=== PATIENT | male | born 1960 | race African-American/Black ===

== ENCOUNTER 2019-05-19 10:23 | Inpatient (IN) | payer BC, OTHER ==
[~2019-05-19] VITALS: Ht 167.6 cm; Wt 103.9 kg
[~2019-05-19 10:23] MED LIST: ASPERDRINK81 MG PO; CYCLOBENZAPRINE5 MG PO; FISHOIL; IBUPROFEN 600600 M1 PO; NORCO 5-325 TA1 EACH PO; ZESTRIL5 MG PO
[2019-05-19 10:25] VITALS: BP 155/95
[2019-05-19] MEDS ORDERED: REPATHA PU420 MG/3.5 SUBQ (10:37)
[2019-05-19] MEDS ORDERED: CHLORTHALIDONE25 MG PO (10:38)
[2019-05-19] MEDS ORDERED: FENOFIBRATE160 MG PO (10:38)
[2019-05-19] MEDS ORDERED: VASCEPA1 GM PO (10:38)
[2019-05-19] MEDS ORDERED: METFORMIN HCL500 M3 PO (10:38)
[2019-05-19 13:16] LABS: HEMATOCRIT 37.1 % (42.0-52.0); HEMOGLOBIN 12.6 gm/dL (14.0-18.0); MCH 30.5 pg (26.0-34.0); MCHC 34.1 g/dL (28.0-37.0); MCV 89.4 fL (80.0-100.0); RBC 4.15 mil/uL (4.50-6.00); RDW 12.7 % (10.5-14.5); WBC 9.8 thou/uL (4.0-11.0)
[2019-05-19 13:26] LABS: CALCIUM 9.8 mg/dL (8.5-10.1); CREATININE 1.7 mg/dL (0.7-1.3); POTASSIUM 4.9 mmol/L (3.5-5.1)
[2019-05-19 15:14] VITALS: BP 119/75
[2019-05-19 15:29] VITALS: BP 126/76
[2019-05-19 16:14] VITALS: BP 119/77
--- NOTE | 2019-05-19 17:53 | NUR ---
PATIENT ARRIVED FROM ED FOR LEFT KNEE CELULITIS AND KNEE PAIN. ALERT X4 FROM HOME. PAIN MANAGED WITH MEDICATIONS AND REST. ORTHO CONSULTED-NPO TONIGHT. CONSCENTS SIGNED. ADMISSION ASSESMENT AND HISTORY COMPLETED. ORDERS ACKNOWLEDGE. CALL LIGHT IN REACH. STAND BY ASSISTANCE.
[2019-05-19 19:24] VITALS: BP 128/60
[2019-05-19 23:42] VITALS: BP 107/61
[2019-05-20 03:32] VITALS: BP 111/62
--- NOTE | 2019-05-20 03:40 | NUR ---
ASSUMED CARE OF PT AT 1900HRS. PT IS AOX4 AND IS UP AD ÓSCAR. PT CALLS FOR HELP NEEDED. SPOUSE IS AT BED SIDE. PT WAS ABLE TO GET COMFORTABLE AND SLEEP PART OF THE SHIFT. NO S/S OF ACUTE DISTRESS. WILL CONTINUE TO MONITOR.
[2019-05-20 05:11] LABS: GLYCOHEMOGLOBIN (HGB A1C) 8.9 % (4.8-5.6)
[2019-05-20 05:35] LABS: ABSOLUTE NEUTROPHILS 10.4 thou/uL (1.4-8.2); BASOPHILS 0.3 % (0.0-2.0); EOSINOPHILS 0.1 % (0.0-3.0); HEMATOCRIT 35.9 % (42.0-52.0); LYMPHOCYTES 10.9 % (24.0-44.0); MCH 30.3 pg (26.0-34.0); MCHC 33.4 g/dL (28.0-37.0); MCV 90.5 fL (80.0-100.0); MONOCYTES 7.5 % (1.0-8.0); PLATELET COUNT 272 thou/uL (150-400); POLYS 81.2 % (36.0-66.0); RBC 3.96 mil/uL (4.50-6.00); RDW 13.2 % (10.5-14.5); WBC 12.8 thou/uL (4.0-11.0)
[2019-05-20 05:43] LABS: ALBUMIN 3.6 g/dL (3.4-5.0); CALCIUM 9.6 mg/dL (8.5-10.1); CREATININE 2.4 mg/dL (0.7-1.3); MAGNESIUM 2.2 mg/dL (1.8-2.4); PHOSPHORUS 2.3 mg/dL (2.5-4.9); POTASSIUM 5.6 mmol/L (3.5-5.1); TOTAL BILIRUBIN 0.2 mg/dL (<0.1-1.0)
[2019-05-20 08:04] VITALS: BP 111/72
[2019-05-20 10:43] LABS: URINE BILIRUBIN NEGATIVE (Negative); URINE BLOOD NEGATIVE (Negative); URINE CLARITY CLEAR; URINE COLOR YELLOW; URINE GLUCOSE-RANDOM* NEGATIVE (Negative); URINE KETONES NEGATIVE (Negative); URINE LEUKOCYTES NEGATIVE (Negative); URINE NITRITE NEGATIVE (Negative); URINE PROTEIN (DIPSTICK) NEGATIVE (Negative); URINE SPECIFIC GRAVITY >= 1.030 (1.005-1.035); URINE UROBILINOGEN 0.2 E.U./dl (0.2-1.0)
[2019-05-20 11:10] LABS: URINE PROTEIN-RANDOM* 14.8 mg/dL (<11.9)
--- NOTE | 2019-05-20 13:55 | NUR ---
PT ADMITTED RELATED TO CELLULITIS AND LEFT KNEE RAMANA. CM REVIEWED CHART AND SPOKE WITH CARE TEAM. CM MET WITH PT AND SPOUSE AT BEDSIDE THIS DAY. PT IS A&O X4. CM ROLE INTRODUCED. PT INDICATED HE LIVES IN A HOUSE WITH HIS WITH 3 STEPS TO ENTER AND NO STEPS INSIDE. 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 PT INDICATED NO DME OR HH HX. PT INDICATED HE PLANS TO RETURN HOME ONCE MEDICALLY STABLE. CM TO FOLLOW INDICATED WITH DC PLANNING.
[2019-05-20 14:20] VITALS: BP 111/57
--- NOTE | 2019-05-20 18:06 | NUR ---
Assumed pt care this am, ultra sound done this am. is at the bedside,pt is up at richard and able to ambulate from bed to toilet. GAve hmselft a bath today. Minimal pain was noted and managed with schduled medication, pt did not like the lidocain patch and felt this was causing him more discomfort and asked for it to be removed in the afternoon. VS have been stable. Home medication reviewed with Dr. French some not restarted due to renal issues informed the pt. Pt was also seen by Dr. Mccarthy, no lsurgical intervention is needed at this point. POC followed, no signs or verbalizations of distress have been noted.
[2019-05-20 19:53] VITALS: BP 102/65
--- NOTE | 2019-05-21 04:28 | NUR ---
Pt. rested quietly at intervals during the night when checked on during frequent rounds. He has been taking scheduled po tylenol for left knee pain (see emar) with some relief noted. Up ad richard to the bathroom and voiding without difficulty.
[2019-05-21 05:38] VITALS: BP 113/59
[2019-05-21 05:39] LABS: ABSOLUTE NEUTROPHILS 6.3 thou/uL (1.4-8.2); BASOPHILS 0.7 % (0.0-2.0); EOSINOPHILS 1.3 % (0.0-3.0); HEMOGLOBIN 11.9 gm/dL (14.0-18.0); LYMPHOCYTES 28.6 % (24.0-44.0); MCH 30.8 pg (26.0-34.0); MCHC 33.9 g/dL (28.0-37.0); MONOCYTES 5.6 % (1.0-8.0); PLATELET COUNT 259 thou/uL (150-400); POLYS 63.8 % (36.0-66.0); RBC 3.85 mil/uL (4.50-6.00); RDW 12.9 % (10.5-14.5); WBC 9.9 thou/uL (4.0-11.0)
[2019-05-21 05:54] LABS: ALBUMIN 3.3 g/dL (3.4-5.0); CALCIUM 8.8 mg/dL (8.5-10.1); CREATININE 1.5 mg/dL (0.7-1.3); PHOSPHORUS 3.1 mg/dL (2.5-4.9)
[2019-05-21 05:55] LABS: POTASSIUM 4.4 mmol/L (3.5-5.1)
[2019-05-21 07:50] VITALS: BP 114/65
--- NOTE | 2019-05-21 11:41 | NUR ---
ORDERS RECEIVED FOR EVAL AND TREAT LT KNEE PAIN/BURSITIS. SPOKE WITH Pt WHO STATES PAIN IS MUCH BETTER THAN YESTERDAY AND HE IS HAVING NO DIFFICULTY WITH MOBILITY. Pt STATES HE IS AMBULATING TO THE BATHROOM ON HIS OWN. OBSERVED Pt STAND AND AMBULATE IN HIS ROOM WITHOUT DIFFICULTY. Pt DECLINING FORMAL P.T. EVAL BUT APPEARS SAFE FOR HOME WHEN MEDICALLY CLEAR
[2019-05-21 15:00] VITALS: BP 112/67
[2019-05-21 19:29] VITALS: BP 131/58
--- NOTE | 2019-05-21 20:30 | NUR ---
ASSUMED CARE OF PATIENT AT 0715, PATIENT ALERT AND ORIENTED X4. UP AD ÓSCAR IN ROOM. PT EVAL ORDERED, MOIRA/PT STATES PATIENT OK UP AD ÓSCAR. PATIENT C/O LEFT KNEE PAIN. RECEIVED TYLENOL SCHEDULED EVERY 6 HRS. PATIENT TOOK A SHOWER AND LEFT KNEE STARTED SWELLING. THIS RN NOTIFIED DR MARTÍNEZ, ORDER RECEIVED FOR MORPHINE 1 MG EVERY 4 HOURS/PRN, AND ALSO NEW ORDER FOR HYDROCODONE 1 TABLET BID. PATIENT RECEIVE HYDROCODONE 1 TABLET THIS SHIFT AND MORPHINE 1 MG AT END OF THE SHIFT. BLOOD SUGAR MONITORING ORDERED, AND S/S INSULIN GIVEN PER BLOOD SUGAR READING. PATIENT HAS RIGHT FOREARM IV IN PLACE, IV FLUIDS CHANGED TO 50CC/HR, AND PATIENT CONTINUES TO RECEIVED IV ANTIBIOTICS. WILL CONTINUE TO MONITOR.
[2019-05-22 05:16] VITALS: BP 134/72
--- NOTE | 2019-05-22 05:29 | NUR ---
Pt. rested quietly at intervals during the night when checked on during frequent rounds. He c/o pain to his left knee and was given iv morphine (see emar) with some relief noted. Some swelling to the knee, but no red- ness present.
[2019-05-22 05:55] LABS: ALBUMIN 3.5 g/dL (3.4-5.0); CREATININE 1.4 mg/dL (0.7-1.3); PHOSPHORUS 3.3 mg/dL (2.5-4.9); POTASSIUM 4.9 mmol/L (3.5-5.1)
[2019-05-22 07:08] VITALS: BP 128/71
[2019-05-22 15:36] VITALS: BP 117/76
--- NOTE | 2019-05-22 19:39 | NUR ---
ALERTS X4, PAIN MANAGED WITH MEDICATIONS. LEFT LE SLOW TO PROGRESS. BRIEF DM EDUCATION TODAY WITH FOLLOW UP EDUCATION, TOMORROW. POSSIBLE DC TOMORROW.
[2019-05-22 19:50] VITALS: BP 135/82
[2019-05-23 03:58] VITALS: BP 133/56
--- NOTE | 2019-05-23 05:20 | NUR ---
Pt. rested quietly during the night when checked on during frequent rounds. He did c/o left knee pain and po pain meds given (see emar) with relief noted. Left knee with swelling present, but no redness present. Iv antibiotics given as ordered. Spouse at the bedside during hs blood sugar check. Demonstrated and educated on how to draw up insulin and administer. Will continue to educate pt. and spouse on diabetes and insulin. New iv inserted to right fa without difficulty.
[2019-05-23 07:55] VITALS: BP 127/80
[2019-05-23 11:46] LABS: ABSOLUTE NEUTROPHILS 5.1 thou/uL (1.4-8.2); BASOPHILS 0.9 % (0.0-2.0); EOSINOPHILS 1.5 % (0.0-3.0); HEMATOCRIT 38.8 % (42.0-52.0); HEMOGLOBIN 13.1 gm/dL (14.0-18.0); MCH 30.5 pg (26.0-34.0); MCHC 33.7 g/dL (28.0-37.0); MCV 90.5 fL (80.0-100.0); MONOCYTES 8.7 % (1.0-8.0); PLATELET COUNT 282 thou/uL (150-400); POLYS 66.9 % (36.0-66.0); RBC 4.29 mil/uL (4.50-6.00); RDW 12.6 % (10.5-14.5); WBC 7.7 thou/uL (4.0-11.0)
[2019-05-23 12:01] LABS: CREATININE 1.3 mg/dL (0.7-1.3); POTASSIUM 4.2 mmol/L (3.5-5.1)
[2019-05-23 12:17] LABS: CALCIUM 9.5 mg/dL (8.5-10.1)
--- NOTE | 2019-05-23 15:20 | HC ---
[facility] [place] [address] CONSULTATION Name: RONIT INFANTE Room #: 454-P ADM IN M.R.#: [id number] Admission: 05/19/19 Attend Phys: Isabelle French MD Discharge: Date of : 64 Report #: [id number] THIS REPORT FOR: //name// CC: Isabelle Hunter DATE OF SERVICE: 05/19/2019 INFECTIOUS DISEASE CONSULTATION REASON FOR CONSULTATION: I was asked to evaluate left knee pain with concern for possible infection. HISTORY OF PRESENT ILLNESS: The patient is a 59-year-old diabetic with coronary artery disease, hypertension, who had rather acute onset of pain in his left knee over the prominence of the tibia. No specific trauma. Mild swelling, pain worsened and was unable to ambulate, presented to the Emergency Room. Again, no trauma. No other arthritis symptoms. Blood sugars have been reasonable. No fever, chills or sweats. No history of gout or other arthritis issues. No prior injuries to his knee. 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 Hospitalized given pain medication, placed on ceftriaxone. He notes that the pain is a bit better this evening. REVIEW OF SYSTEMS: A 10-point review of system was negative other than what has been described above. PAST MEDICAL HISTORY: Diabetes, hypertension, hyperlipidemia, obesity, coronary artery disease, coronary bypass grafting. ALLERGIES: None. MEDICATIONS: Repatha, lisinopril, metformin, aspirin, hydrochlorothiazide, fenofibrate, fish oil, now on ceftriaxone. FAMILY HISTORY: Noncontributory. SOCIAL HISTORY: Past smoker, no significant alcohol intake. 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 PHYSICAL EXAMINATION: VITAL SIGNS: He is afebrile and hemodynamically stable. GENERAL: He is alert and cooperative and pleasant, in no acute distress. Moderately obese. SKIN: Without rash or decubitus. No palpable adenopathy. [facility] [address] [place] [address] CONSULTATION Name: RONIT INFANTE Room #: 454-P [facility] IN M.R.#: [id number] Admission: 05/19/19 Attend Phys: Isabelle French MD Discharge: Date of : 64 Report #: [id number] EYES: Without scleral icterus. MOUTH: Without mucositis. NECK: Supple. LUNGS: Clear. HEART: Regular. ABDOMEN: Soft and nontender. EXTREMITIES: The left lower extremity had tenderness over the tibial tuberosity. There was very mild amount of swelling in this region. Mild warmth. No definite cellulitis. This area was exquisitely tender. No joint effusion noted. Range of motion was reasonable, although it was limited due to his pain. No peripheral edema. No tinea pedis. Sensation in his feet was normal. Pulses were normal. LABORATORY STUDIES: Reviewed. Hemoglobin 12.6, WBC 9.8, platelet 228,000. Sedimentation rate 40, creatinine 1.7. C-reactive protein 40. X-ray of the knee shows mild degenerative changes and anterior soft tissue swelling. IMPRESSION: Suspected bursitis involving the tibial tuberosity on the left. He has no risk factors reported for MRSA. He has had no prior history of furuncles. He does have underlying diabetes and chronic kidney disease. Organisms of concern would include Staphylococcus and Streptococcus. RECOMMENDATIONS: We will continue IV antibiotic therapy and rest. We will see how he looks tomorrow. If marked improvement, we will continue antibiotic coverage. If still having issues, we would image further with an MRI scan. <ELECTRONICALLY SIGNED> By: Rasheed Carcamo MD 05/23/19 1520 2219 [id number] Rasheed Carcamo MD /nt
[2019-05-23 15:22] VITALS: BP 158/83
--- NOTE | 2019-05-23 15:36 | NUR ---
AWAITING ORTHO TO REASSESS PT. DR. TSANG INDICATED THAT HE DOESN'T ANTICIPATE THAT PT WILL NEED IV ABX UPON DC. CM TO FOLLOW INDICATED WITH DC PLANNING.
[2019-05-23 19:38] VITALS: BP 144/73
--- NOTE | 2019-05-24 05:42 | NUR ---
PT IS A/O X4.PT USES URINAL.PT PAIN MGT WITH HYDROCODONE.DENIES N/V.PT PT IS NEW DX DAIBETES AND ON MODERATE DOSE INSULIN.CONTINUE POC TILL EOS
[2019-05-24 07:32] VITALS: BP 149/77
--- NOTE | 2019-05-24 07:36 | HC ---
[facility] [place] [address] CONSULTATION Name: RONIT INFANTE Room #: 454-P ADM IN M.R.#: [id number] Admission: 05/19/19 Attend Phys: Isabelle French MD Discharge: Date of : 64 Report #: [id number] THIS REPORT FOR: //name// CC: Isabelle Hunter DATE OF SERVICE: 05/20/2019 REASON FOR CONSULTATION: Left knee pain, possible bursitis. HISTORY OF PRESENT ILLNESS: The patient is a 59-year-old gentleman with a history of diabetes, coronary artery disease, hypertension, hyperlipidemia. On Thursday of this week, which was 05/17/2019, he started to have some left knee pain and then on 05/18/2019, that pain got significantly worse. He denies any trauma to the knee. He was having difficulty bearing weight and came to the Emergency Room and was admitted for possible cellulitis versus bursitis of his left knee. He was started on IV antibiotics. He tells me this morning that his knee pain is significantly improved and he is able to bend his knee much more compared to yesterday. Denies any fever or chills. PAST MEDICAL HISTORY: Diabetes, hypertension, hyperlipidemia, BMI 37, coronary artery disease. ALLERGIES: None. CURRENT MEDICATIONS: Have been reviewed and are on the chart. He is on ceftriaxone. PHYSICAL EXAMINATION: GENERAL: This is a well-developed, well-nourished male in no acute distress. He is alert and oriented x 3, pleasant, cooperative with exam. EXTREMITIES: Examination of the left knee shows him to have minimal pain with range of motion of the knee. His motion is from 0-95 degrees. He states this is significantly improved compared to yesterday. He has mild tenderness over his prepatellar bursa, but no fluctuance noted. There is no erythema or swelling. No knee effusion is noted. X-RAY EXAMINATION: Three views of the left knee have been reviewed, show him to have mild tricompartmental osteoarthritis. No overlying soft tissue swelling is noted. LABORATORY VALUES: Show him to have a white cell count of 12.8. Sed rate is 40. ASSESSMENT: Left knee resolving cellulitis versus bursitis. [address] [address] CONSULTATION Name: RONIT INFANTE Room #: 454-P ADM IN M.R.#: [id number] Admission: 05/19/19 Attend Phys: Isabelle French MD Discharge: Date of : 64 Report #: [id number] PLAN: He is significantly improved compared to yesterday, according to his report and his 's report. There is minimal swelling of his knee. There is no fluctuance noted on my examination today. He is moving his knee well. At this point, I do not see any indication for surgical intervention. Recommend continuing IV antibiotics per Dr. Carcamo's recommendation. We will sign off on him. If he worsens clinically, please call us again and we will re-evaluate for possible need for I and D of his knee. My suspicion is he will be able to be discharged on antibiotics and follow up on an as needed basis for his knee. Thank you for allowing us to participate in the care of the patient. <ELECTRONICALLY SIGNED> By: Mesfin Mccarthy MD 05/24/19 0736 0746 0058 Mesfin Mccarthy MD /nt
--- NOTE | 2019-05-24 11:55 | NUR ---
Assess for pt with intitial identification of pressure ulcer per nursing documentation however pt does not have wound, but bursititis knee. Further chart review and pt with new dx diabetes and on glargine and ss insulin. States had been prediabetic in past. A1C 8.9. Nursing has started education with pt/. BMI 37-obese. Reviewed healthy diet for improved BG control with pt and and pt receptive to information. Also has hx CABG, CAD, BRITTANY. Appetite is good. Low nutrition risk
[2019-05-24 13:43] VITALS: BP 109/58
[2019-05-24] MEDS ORDERED: GLYBURIDE 5 MG T5 M1 PO (14:00)
[2019-05-24] MEDS ORDERED: OTHER MISCELL (14:00)
[2019-05-24] MEDS ORDERED: METFORMIN HCL500 M3 PO (14:00)
[2019-05-24] MEDS ORDERED: HYDROCODON-ACE1 EAC7 PO (14:01)
[2019-05-24 15:55] VITALS: BP 109/58
[2019-05-24] MEDS ORDERED: CELEBREX100 MG/1 C PO (17:04)
--- NOTE | 2019-05-24 18:42 | NUR ---
ASSUMED CARE AT 0700, SHIFT ASSESSMENT DONE, MEDS GIVEN, REPORTED PAIN, PRN PAIN MEDS GIVEN. DISCHARGE ORDER RECEIVED, ORDER RECEIVED FOR LEFT KNEE IMMOBILIZER, WAS PROVIDED. DISCHARGE PAPER WORK GIVEN, PRESCRIPTION GIVEN. PERIPHERAL IV WAS TAKEN OUT. LEFT WITH [facility]SPORT AT 1800
--- NOTE | 2019-05-31 08:39 | HC ---
[facility] [place] [address] CONSULTATION Name: RONIT INFANTE Room #: 454-P [facility] IN M.R.#: [id number] Admission: 05/19/19 Attend Phys: Isabelle French MD Discharge: 05/24/19 Date of : 64 Report #: [id number] THIS REPORT FOR: //name// CC: Isabelle Hunter DATE OF SERVICE: 05/21/2019 REASON FOR THE CONSULTATION: Acute kidney injury. CHIEF COMPLAINT: Left knee pain. HISTORY OF PRESENT ILLNESS: A 59-year-old with past medical history of diabetes mellitus, hypertension, hyperlipidemia and chronic kidney disease, for which he is followed by [facility]. He tells me that his blood pressure and blood sugar are under well control. He also tells me that he has mild kidney disease, but he does not recall his exact numbers. He came to the Emergency Room complaining of left knee pain. No evidence of trauma. This was associated with some redness. He also was not able to bear weight on his left side. He denies any prior similar episodes. No gout. His creatinine on presentation was 1.7. He received a dose of Toradol and this has resulted in significant worsening of his kidney function with creatinine going up to 2.5; however, this is down to 1.5 from this morning. PAST MEDICAL HISTORY: 1. Diabetes mellitus. 2. Hypertension. 3. Chronic kidney disease. 4. Coronary artery disease. MEDICATIONS: 1. Repatha. 2. Aspirin. 3. Fish oil. 4. Hydrochlorothiazide. 5. Metformin. 6. Lisinopril. SOCIAL HISTORY: Denies drug or alcohol abuse. Lives with his . FAMILY HISTORY: Mother had diabetes. PAST SURGICAL HISTORY: CABG two years ago. REVIEW OF SYSTEMS: [facility] [address] [place] [address] CONSULTATION Name: RONIT INFANTE Room #: 454-P DIS IN [facility].#: [id number] Admission: 05/19/19 Attend Phys: Isabelle French MD Discharge: 05/24/19 Date of : 64 Report #: [id number] GENERAL: No fever or chills. CARDIOVASCULAR: No chest pain or palpitation. PULMONARY: No cough or hemoptysis. GASTROINTESTINAL: No nausea or vomiting. GENITOURINARY: No frequency, no urgency. SKIN: No rash or ulcerations. MUSCULOSKELETAL: Left knee pain with some erythema. NEUROLOGICAL: No headache, no dizziness. PHYSICAL EXAMINATION: GENERAL: The patient was alert, oriented. VITAL SIGNS: Temperature 37. Blood pressure was 113/59. HEAD AND NECK: No jugular venous distention. CHEST: No crackles. CARDIOVASCULAR: No rub detected. ABDOMEN: Soft, nontender with no hepatosplenomegaly. LOWER EXTREMITIES: No edema. Slightly tender spot over the left knee. LABORATORY VALUES: Reviewed. His UA was completely unremarkable. Creatinine is down to 1.5. Hemoglobin is 11.9. ASSESSMENT, IMPRESSION, AND PLAN: 1. Chronic kidney disease. 2. Acute kidney injury. 3. Bursitis. 4. Diabetes mellitus. 5. Coronary artery disease. 6. His acute kidney injury was related to Toradol, this has been discontinued. 7. His creatinine is now down to his baseline. 8. Continue to hold lisinopril. 9. Continue IV fluids. 10. Continue to hold metformin. 11. Bursitis is being addressed by [facility]opedic [facility] Disease. <ELECTRONICALLY SIGNED> By: Berenice Arroyo MD 05/31/19 0839 0601 [id number] Berenice Arroyo MD /nt
--- NOTE | 2019-06-07 10:15 | H ---
[facility] [place] [address] HISTORY AND PHYSICAL Name: RONIT INFANTE Room #: 454-P [facility] IN M.R.#: [id number] Admission: 05/19/19 Attend Phys: Isabelle French MD Discharge: 05/24/19 Date of : 64 Report #: [id number] THIS REPORT FOR: //name// CC: Isabelle Hunter DATE OF SERVICE: 05/19/2019 PRIMARY CARE PHYSICIAN: Dr. Hunter. EMERGENCY CONTACT: His , Ms. Pratibha Infante, . CODE STATUS: Full code. CHIEF COMPLAINT: Left knee pain, started yesterday morning, and progressively got worse. HISTORY OF PRESENT ILLNESS: The patient is a very pleasant 59-year-old gentleman with a known history of coronary artery disease with CABG two years ago as well as diabetes mellitus type 2, hypertension, hyperlipidemia. The patient informs me that on Thursday he went to work and he noticed some discomfort in the left knee, but it was not persistent and it resolved by itself; however, yesterday morning, the pain got significantly worse and progressively worse since today, and now he is unable to bear weight on the knee. The patient informs me that he has had no trauma. no sprain, no weightlifting or any activity or trauma that could have exacerbated this pain. He is unable to recall so. The patient has never had any knee problems in the past. He informs me that area underneath the knee and points towards the patella is extremely tender as if somebody is pushing something really sharp on the knee joint. The patient has not noticed any swelling or redness, but today he noticed a little bit of fullness in the left knee area as compared to the right knee. The patient denied any associated fever, shaking chills, night sweats. He denies any skin breakdown or any trauma to the feet or leg or anything that could have contributed to this swelling in the knee or source of infection in the left knee. The patient has review of systems negative for nausea, vomiting, diarrhea, constipation. Denies any hematochezia or melena. He also denies any cough, sputum production, shortness of breath, sore throat, sinus drainage, also denies any dysuria, hematuria, frequency or urgency of urination. PAST MEDICAL HISTORY: As noted above, the patient has: 1. Diabetes. 2. Hypertension. 3. Hyperlipidemia. 4. Obesity with BMI of 37. [address] [address] HISTORY AND PHYSICAL Name: RONIT INFANTE Room #: 454-P [facility] IN M.R.#: [id number] Admission: 05/19/19 Attend Phys: Isabelle French MD Discharge: 05/24/19 Date of : 64 Report #: [id number] 5. Coronary artery disease. ALLERGIES: None. MEDICATIONS: 1. Repatha. 2. Lisinopril. 3. Metformin. 4. Aspirin. 5. Hydrochlorothiazide. 6. Fenofibrate. 7. Fish oil capsules. FAMILY HISTORY: The patient's mother had has diabetes mellitus. Father with dementia. PERSONAL AND SOCIAL HISTORY: The patient quit smoking 2-1/2 years ago. Prior to that, he smoked 1 pack per day and denies any alcohol or recreational drug use. Lives at home with his and wishes to be full code. PAST SURGICAL HISTORY: The patient had CABG 2 years ago and right femur surgery. REVIEW OF SYSTEMS: Ten point review of system was done. Please see HPI above. PHYSICAL EXAMINATION: VITAL SIGNS: Temperature 36.8, heart rate 111, respirations 18, blood pressure 155/95 when he presented to the ER with oxygen saturation of 100% on room air. At the time of examination, the patient had temperature 36.8, heart rate 97, respirations 16, blood pressure 119/75, pulse oximetry 97% on room air. GENERAL: Alert and oriented to time, place and person, very pleasant gentleman who is in no acute distress as long as the knee joint is not moved. HEENT: Normocephalic, atraumatic. Pupils equally round, reactive to light. Conjunctivae clear. Sclerae nonicteric. Oropharynx clear. Mucous membranes moist. NECK: Supple. No JVD. No lymphadenopathy or thyromegaly. HEART: S1, S2, regular. No murmur, no S3, no S4. LUNGS: Clear to auscultation bilaterally without any crackles or wheezes. Midline scar of CABG, well healed. No chest wall tenderness noted. ABDOMEN: Soft, nontender, nondistended. Normal active bowel sounds. No organomegaly noted. EXTREMITIES: No edema of both lower extremities. The patient has 2+ pedal pulses present in both lower extremities. MUSCULOSKELETAL: Left knee with no erythema or skin breakdown noted; however, marked tenderness noted at the patella and in the suprapatellar area. There is some fullness. Range of motion at knee is slightly limited with flexion. [facility] [address] [place] [address] HISTORY AND PHYSICAL Name: RONIT INFANTE Room #: 454-P [facility] IN M.R.#: [id number] Admission: 05/19/19 Attend Phys: Isabelle French MD Discharge: 05/24/19 Date of : 64 Report #: [id number] NEUROLOGIC: Completely nonfocal. SKIN: Without any breakdown or rash noted. LABORATORY DATA: WBC 9.8, hemoglobin 12.6, hematocrit 37.1, platelet count 288. Sed rate elevated at 40. Differential is pending. Sodium 137, potassium 4.9, chloride 101, bicarbonate 24, anion gap 12, BUN 34, creatinine 1.7, estimated GFR 51, glucose 184, calcium 9.8, and C-reactive protein at 40.7. IMAGING: X-ray of the knee indicates joint space fairly well maintained and vascular calcifications noted, mild degenerative changes and anterior soft tissue swelling noted. ASSESSMENT AND PLAN: 1. Severe left knee pain with possible underlying bursitis and may be component of cellulitis. There was a question of septic arthritis noted; however, there is absolutely no erythema or redness or warmth noted. Tenderness definitely is present; however, the patient is a diabetic, the vascular disease as well and orthopedic has been consulted by the ER provider. We will go ahead and ask Infectious Disease as well for the feedback. Rocephin was given in the Emergency Room and will continue empirically. 2. Diabetes mellitus type 2. We will do Accu-Cheks q.i.d. a.c. and at bedtime and start home medications and high dose sliding scale insulin. 3. Hypertension. We will resume home medications. 4. Chronic kidney disease stage 3. The patient has a GFR of 55. We will go ahead and avoid any nephrotoxic agents. 5. Hyperlipidemia. The patient is on Repatha and fenofibrate. We will continue fenofibrate for now. We will hold Repatha. 6. Obesity with a BMI of 37. Advised the patient to lose some weight. 7. Tobacco use, in remission. We will go ahead and encourage the patient to sustain remission status and code status full code. Deep venous thrombosis prophylaxis with heparin and gastrointestinal prophylaxis with Pepcid. <ELECTRONICALLY SIGNED> By: Isabelle French MD 06/07/19 [id number] Isabelle French MD /nt
== END 2019-05-24 18:18 | disposition home or self-care (01) | DRG 558 ==
LOC: ER 10:23 → EROBS 14:46 → 4W 15:58 → ENTRNSPT 05-24 17:51 → 4W 05-24 18:18
PROVIDERS: Hospitalist; Nurse Practitioner Family; ADMIT Internal Medicine
DX: M76.52 Patellar tendinitis, left knee (principal); N17.9 Acute kidney failure, unspecified; I25.10 Atherosclerotic heart disease of native coronary artery without angina pectoris; E78.5 Hyperlipidemia, unspecified; E66.9 Obesity, unspecified; I12.9 Hypertensive chronic kidney disease with stage 1 through stage 4 chronic kidney disease, or unspecified chronic kidney disease; E11.22 Type 2 diabetes mellitus with diabetic chronic kidney disease; N18.3 Chronic kidney disease, stage 3 (moderate); T39.8X5A Adverse effect of other nonopioid analgesics and antipyretics, not elsewhere classified, initial encounter; Z68.37 Body mass index [BMI] 37.0-37.9, adult; Z95.1 Presence of aortocoronary bypass graft; Z79.899 Other long term (current) drug therapy; Z79.82 Long term (current) use of aspirin; Z83.3 Family history of diabetes mellitus; Z81.8 Family history of other mental and behavioral disorders; Z87.891 Personal history of nicotine dependence; Y92.89 Other specified places as the place of occurrence of the external cause
CPT/HCPCS: 10040

== ENCOUNTER 2019-05-26 13:38 | Inpatient (IN) | payer BC, OTHER ==
[~2019-05-26] VITALS: Ht 167.6 cm; Wt 103.9 kg
[2019-05-26 13:38] VITALS: BP 89/53
[~2019-05-26 13:38] MED LIST changes: +CELEBREX100 MG/1 C PO; +CHLORTHALIDONE25 MG PO; +FENOFIBRATE160 MG PO; +GLYBURIDE 5 MG T5 M1 PO; +HYDROCODON-ACE1 EAC7 PO; +METFORMIN HCL500 M3 PO; +OTHER MISCELL; +REPATHA PU420 MG/3.5 SUBQ; +VASCEPA1 GM PO
[2019-05-26 15:23] LABS: ABSOLUTE NEUTROPHILS 7.9 thou/uL (1.4-8.2); BASOPHILS 0.7 % (0.0-2.0); EOSINOPHILS 0.5 % (0.0-3.0); HEMATOCRIT 34.8 % (42.0-52.0); HEMOGLOBIN 11.7 gm/dL (14.0-18.0); LYMPHOCYTES 12.9 % (24.0-44.0); MCH 30.2 pg (26.0-34.0); MCHC 33.5 g/dL (28.0-37.0); MCV 90.2 fL (80.0-100.0); MONOCYTES 7.5 % (1.0-8.0); PLATELET COUNT 318 thou/uL (150-400); POLYS 78.4 % (36.0-66.0); RBC 3.86 mil/uL (4.50-6.00)
[2019-05-26 15:33] LABS: ANION GAP 9 mmol/L (7-16); BUN 45 mg/dL (7-18); CALCIUM 9.6 mg/dL (8.5-10.1); CHLORIDE 100 mmol/L (98-107); CO2 26 mmol/L (21-32); CREATININE 2.4 mg/dL (0.7-1.3); GLUCOSE 145 mg/dL (74-106); POTASSIUM 5.3 mmol/L (3.5-5.1); SODIUM 135 mmol/L (136-145)
[2019-05-26 15:41] LABS: APTT 20.8 Seconds (24.5-32.8); INR 1.1
[2019-05-26 15:43] LABS: ALBUMIN 3.5 g/dL (3.4-5.0); DIRECT BILIRUBIN < 0.1 mg/dL (<0.1-0.3); LIPASE 135 U/L (73-393); SGOT 13 U/L (15-37); SGPT 18 U/L (30-65); TOTAL BILIRUBIN 0.1 mg/dL (<0.1-1.0); TOTAL PROTEIN 7.7 g/dL (6.4-8.2); TROPONIN-I <0.06 ng/mL (<0.06)
--- NOTE | 2019-05-26 16:30 | EKG ---
[address] [address] ELECTROCARDIOGRAM REPORT Name: RONIT INFANTE [id number] Admission: 05/26/19 Attend Phys: Discharge: Date of : 64 Report #: [id number] THIS REPORT FOR: //name// [facility] ED Test Date: 2019-05-26 Test Time: 14:31:31 Pat Name: RONIT INFANTE Department: Room: Gender: M Police Officer: : 1960 Requested By: Alex Robins Order Number: [id number] MD: Osito Rojas Measurements Intervals [place] Rate: 86 P: 45 MA: 148 QRS: 23 QRSD: 86 T: 97 QT: 361 QTc: 432 Interpretive Statements Sinus rhythm Nonspecific T abnormalities, lateral leads Compared to ECG 10/30/2010 05:59:54 T-wave abnormality now present Electronically Signed On 05-26-2019 16:30:00 CDT by Osito Rojas [email or web address] <ELECTRONICALLY SIGNED> By: Osito Rojas MD 05/26/19 1630 1431 143 Osito Rojas MD /GERRY
[2019-05-26 17:52] LABS: URINE BILIRUBIN NEGATIVE (Negative); URINE BLOOD NEGATIVE (Negative); URINE CLARITY CLEAR; URINE COLOR YELLOW; URINE GLUCOSE-RANDOM* NEGATIVE (Negative); URINE KETONES NEGATIVE (Negative); URINE LEUKOCYTES-REFLEX NEGATIVE (Negative); URINE NITRITE-REFLEX NEGATIVE (Negative); URINE PROTEIN (DIPSTICK) NEGATIVE (Negative); URINE SPECIFIC GRAVITY 1.025 (1.005-1.035); URINE UROBILINOGEN 0.2 E.U./dl (0.2-1.0)
[2019-05-26 18:50] VITALS: BP 109/58
[2019-05-26 19:15] VITALS: BP 104/64
[2019-05-26 21:15] VITALS: BP 126/67
[2019-05-27] VITALS: BP 116/70
[2019-05-27 05:17] VITALS: BP 117/57
[2019-05-27 05:44] LABS: HEMATOCRIT 32.5 % (42.0-52.0); HEMOGLOBIN 10.7 gm/dL (14.0-18.0); MCH 30.5 pg (26.0-34.0); MCV 92.4 fL (80.0-100.0); RBC 3.52 mil/uL (4.50-6.00); RDW 12.9 % (10.5-14.5); WBC 7.7 thou/uL (4.0-11.0)
[2019-05-27 06:03] LABS: CALCIUM 9.1 mg/dL (8.5-10.1); MAGNESIUM 2.2 mg/dL (1.8-2.4); PHOSPHORUS 3.2 mg/dL (2.5-4.9); POTASSIUM 4.8 mmol/L (3.5-5.1)
--- NOTE | 2019-05-27 06:17 | NUR ---
PT WAS ADMIT FROM ER AT 1999. FOLLOWING POC WITH IVF. PT STATES NO PAIN AT THIS TIME. ADMISSION COMPLETED, CAREPLAN INITIATED, MED REC STARTED. PT IS NEWLY DIAGNOSED DIABETIC TYPE II. THERE ARE NO INSULIN MEDICATIONS FOR PT YET. PT VSS AND TELEMENTY SHOWS SR. PT IS A/O X4. LEFT LEG IS IN AN IMMOBILIZER. CONSULT TO RENAL WILL BE CALLED IN THIS MORNING. HOURLY ROUNDING.
[2019-05-27 06:19] LABS: CREATININE 1.4 mg/dL (0.7-1.3)
[2019-05-27 07:53] VITALS: BP 106/68
--- NOTE | 2019-05-27 10:07 | NUR ---
Nutrition: Received consult for diet instructions, re: newly diagnosed type 2 diabetes. Admit: BRITTANY, hypotension. Pt just admitted earlier this week; seen by RD 3 days ago on 05/24 for diet ed on new DM. RD returned this AM to f/up on any further questions/education needs. had numerous questions about which foods were preferred, portion size, "is this ok to have?" RD clarified 45 g CHO/meal goal; max of 60 g/meal. A1c 8.9% per 05/19/19. Fasting BG 117 mg/dl. Encouraged use of whole grains instead of refined. Focused on low carb content of non starchy vegetables. Offered alternative to pasta like spaghetti squash, discussed carb content, serving sizes of fruits. Encouraged pairing carbs w/ protein, healthy fat to help slow down digestion/BG spikes. Low nutrition risk otherwise.
--- NOTE | 2019-05-27 12:41 | NUR ---
PT ADMITTED RELATED TO ABDOMINAL PAIN. CM REVIEWED CHART AND SPOKE WITH CARE TEAM. CM MET WITH PT AT BEDSIDE THIS DAY. PT IS A&O X4, PT'S SPOUSE ALSO PRESENT. PT INDICATED HE LIVES IN A HOUSE WITH IS SPOUSE WITH 3 STEPS TO ENTER AND NO STEPS INSIDE. 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 PT INDICATED HE ANTICIPATES RETURNING HOME ONCE MEDICALLY STABLE. CM TO FOLLOW SHOULD ANY DC NEEDS ARISE.
--- NOTE | 2019-05-27 13:11 | NUR ---
ORDERS RECEIVED FOR EVAL AND TREAT. Pt IS FAMILIAR TO THIS THERAPIST FROM PREVIOUS ADMISSION A FEW DAYS AGO. SPOKE WITH Pt WHO STATES HE IS HAVING NO DIFFICULTY WITH MOBILITY AND HAS BEEN USING THE KNEE IMMOBILIZER WHEN WALKING. Pt DECLINING FORMAL P.T. EVAL BUT WAS UP AD ÓSCAR LAST ADMISSION AND Pt FEELS THOUGH HE IS MOVING LIKE HE NORMALLY DOES
[2019-05-27 15:27] VITALS: BP 118/75
[2019-05-27 19:09] VITALS: BP 125/71
--- NOTE | 2019-05-27 19:46 | NUR ---
QUIET UNEVENTFUL DAY. UP WITH STANDBY ASSIST TO BATHROOM. STEADY GAIT NOTED. PHYSICAL THERAPY MOIRA STATED DOES NOT NEED PT SO SIGNED OFF. TOLERATING DIET WELL. DENIED PAIN. SR ON TELE. HOPING TO GO HOME TOMORROW.
[2019-05-28 04:38] VITALS: BP 121/62
[2019-05-28 04:55] LABS: HEMATOCRIT 31.8 % (42.0-52.0); HEMOGLOBIN 10.6 gm/dL (14.0-18.0); MCH 29.9 pg (26.0-34.0); MCHC 33.2 g/dL (28.0-37.0); RBC 3.54 mil/uL (4.50-6.00); RDW 12.8 % (10.5-14.5); WBC 5.9 thou/uL (4.0-11.0)
[2019-05-28 05:16] LABS: CALCIUM 8.9 mg/dL (8.5-10.1); CREATININE 1.2 mg/dL (0.7-1.3); MAGNESIUM 1.8 mg/dL (1.8-2.4); PHOSPHORUS 2.3 mg/dL (2.5-4.9); POTASSIUM 4.6 mmol/L (3.5-5.1)
--- NOTE | 2019-05-28 05:40 | NUR ---
REPORT GIVEN TO 4S RN ON PT. ALLOWED FOR QUESTIONS. DISCUSSED POC AND AM LABS, HX OF PT AND ADMITTING DX. WILL GATHER PT BELONGINGS UP AROUND 0600 AND TRANSFER PT OFF FLOOR TO ROOM 440.
--- NOTE | 2019-05-28 06:33 | NUR ---
PT OFF FLOOR IN STABLE CONDITION. WILL ALL BELONGINGS. AT SIDE. PT SETTLED AND ORIENTED TO NEW ROOM ON 4S
[2019-05-28 16:31] VITALS: BP 121/78
--- NOTE | 2019-05-28 18:08 | NUR ---
Assumed care of pt at 0700. Pt transeferred from 3W. Leg brace in place. No c/o pain. Fluids infusing. Pt calls appropriately. Family at bedside. Pt awaiting to see hospital doctor. Doctor notified and states she will see pt. Will continue to monitor.
[2019-05-28 21:00] VITALS: BP 132/78
[2019-05-29] VITALS (7 sets, daily range): BP systolic 124–168; BP diastolic 59–100
--- NOTE | 2019-05-29 04:21 | NUR ---
Pt. rested quietly at intervals during the night when checked on during frequent rounds. He offers no complaints. Pt. getting ready for discharge today.
[2019-05-29 06:21] LABS: HEMATOCRIT 33.1 % (42.0-52.0); MCH 29.7 pg (26.0-34.0); MCHC 33.2 g/dL (28.0-37.0); MCV 89.4 fL (80.0-100.0); RBC 3.71 mil/uL (4.50-6.00); RDW 12.6 % (10.5-14.5); WBC 5.6 thou/uL (4.0-11.0)
[2019-05-29 06:45] LABS: CALCIUM 8.9 mg/dL (8.5-10.1); CREATININE 1.1 mg/dL (0.7-1.3); MAGNESIUM 1.6 mg/dL (1.8-2.4); PHOSPHORUS 2.7 mg/dL (2.5-4.9); POTASSIUM 4.1 mmol/L (3.5-5.1)
[2019-05-29] MEDS ORDERED: PEPCID20 MG PO (15:11)
--- NOTE | 2019-05-29 15:21 | NUR ---
PT ALERT AND ORIENTED TIMES FOUR. VSS BP WAS ELEVATED WHEN STANDING FOR ORTHOSTATIC BP. PT DENIES PAIN/SOA. PT UP AB ÓSCAR WITH STEADY GAIT. PT TOLERATES MEDS AND MEALS. PT AT BEDSIDE. PPOSSIBLE PLAN TO DISCHARGE TODAY. WILL CONTINUE TO MONITOR.
--- NOTE | 2019-05-30 04:36 | NUR ---
ASSUMED CARE OF PT. PT ASSESSED AT START OF SHIFT A&OX4 DENIES PAIN, N,V AND DIZZINESS. BP ASSESSED AND STABLE. BEDTIME BLOD SUGAR 160. AT BEDSIDE. PT GETTING READY FOR D/C. CALL LIGHT IN PLACE AND WILL CONT TO MONITOR TILL EOS
[2019-05-30 05:45] VITALS: BP 130/80
[2019-05-30] MEDS ORDERED: NORVASC 2.5 MG2.5 M1 PO (09:21)
[2019-05-30] MEDS ORDERED: AMARYL1 MG PO (09:21)
[2019-05-30 09:33] VITALS: BP 123/79
--- NOTE | 2019-05-30 14:46 | 2DMMODE ---
[facility] [place] [address] 2 D/M-MODE ECHOCARDIOGRAM Name: RONIT INFANTE Room #: 440-P ADM IN M.R.#: [id number] Admission: 05/26/19 Attend Phys: Isabelle French, Discharge: Date of : 64 Report #: [id number] THIS REPORT FOR: //name// APPROVED REPORT Study performed: 05/30/2019 13:23:58 EXAM: Comprehensive 2D, Doppler, and color-flow Echocardiogram Patient Location: Bedside Room #: 440 Status: routine BSA: 2.12 HR: 78 bpm BP: 123/79 mmHg Rhythm: NSR Other Information Study Quality: Adequate Indications Known CAD, lightheadedness. Hx: CABG, HTN, HLP. 2D Dimensions RVDd: 40.37 mm IVSd: 11.29 (7-11mm) LVOT Diam: 23.15 (18-24mm) LVDd: 48.35 mm PWd: 11.29 (7-11mm) Ascending Ao: 33.99 (22-36mm) LVDs: 34.50 (25-40mm) Aortic Root: 34.12 mm Volumes Left Atrial Volume (Systole) Single Plane 4CH: 28.85 mL Single Plane 2CH: 42.75 mL LA ESV Index: 18.00 mL/m2 Aortic Valve AoV Peak Sam.: 1.68 m/s AO Peak Gr.: 11.94 mmHg LVOT Max P.12 mmHg LVOT Max V: 1.24 m/s ANGEL Vmax: 3.10 cm2 Mitral Valve E/A Ratio: 1.6 MV Decel. Time: 205.36 ms MV E Max Sam.: 0.85 m/s [facility] [address] [place] [address] 2 D/M-MODE ECHOCARDIOGRAM Name: RONIT INFANTE Room #: [address] [place] [address] IN ..#: [id number] Admission: 05/26/19 Attend Phys: Isabelle French, Discharge: Date of : 64 Report #: [id number] MV A Sam.: 0.53 m/s MV PHT: 59.55 ms IVRT: 83.04 ms Pulmonary Valve PV Peak Sam.: 1.08 m/s PV Peak Gr.: 4.64 mmHg Pulmonary Vein P Vein S: 0.81 m/s P Vein D: 0.60 m/s P Vein S/D Ratio: 1.35 Tricuspid Valve TR Peak Sam.: 2.55 m/s TR Peak Gr.: 26.05 mmHg Left Ventricle The left ventricle is normal size. Mild basal septal hypertrophy is present. Left ventricular systolic function is normal. LVEF is 60-65%. Right Ventricle The right ventricle is normal size. The right ventricular systolic function is normal. Atria The left atrium size is normal. The right atrium size is normal. Aortic Valve The aortic valve is normal in structure; mildly calcified. No aortic regurgitation is present. There is no aortic valvular stenosis. Mitral Valve The mitral valve is normal in structure. There is no mitral valve regurgitation noted. Tricuspid Valve The tricuspid valve is normal in structure. Mild tricuspid regurgitation. Estimated PAP is 26 plus the right atrial pressure. Pulmonic Valve The pulmonary valve is normal in structure. Mild to moderate pulmonic regurgitation. [facility] [address] [place] [address] 2 D/M-MODE ECHOCARDIOGRAM Name: ARELISRONIT Room #: 440-P ADM IN M.R.#: [id number] Admission: 05/26/19 Attend Phys: Isabelle French, Discharge: Date of : 64 Report #: [id number] Great Vessels The aortic root is normal in size. The ascending aorta is normal in size. IVC is not well visualized. Pericardium There is no pericardial effusion. <Conclusion> The left ventricle is normal size. LVEF is 60-65%. The aortic valve is normal in structure; mildly calcified. The mitral valve is normal in structure. The tricuspid valve is normal in structure. Mild tricuspid regurgitation. Estimated PAP is 26 plus the right atrial pressure. The pulmonary valve is normal in structure. Mild to moderate pulmonic regurgitation. There is no pericardial effusion. <ELECTRONICALLY SIGNED> By: Evelio Flores MD 05/30/19 1446 1446 1446 Evelio Flores MD /INF
[2019-05-30 15:40] VITALS: BP 144/93
[2019-05-30 15:45] VITALS: BP 155/95
[2019-05-30 15:50] VITALS: BP 167/117
[2019-05-30] MEDS ORDERED: GLIPIZIDE 5 MG T5 MG PO (15:52)
[2019-05-30 15:58] VITALS: BP 167/117
--- NOTE | 2019-05-30 19:44 | NUR ---
ASSUMED CARE @ 0700 05/30/19, PT ASSESSMENTS AND VSS COMPLETE PER MS PROTOCOL, DISCHARGE INSTRUCTIONS GIVEN, PT DISCHARGED TO , NO COMPLICATIONS NOTED.
== END 2019-05-30 18:53 | disposition home or self-care (01) | DRG 315 ==
LOC: ER 13:38 → EROBS 17:48 → 3W 17:48 → 4S 05-27 23:12
PROVIDERS: Emergency Medicine; ADMIT Internal Medicine
DX: I95.9 Hypotension, unspecified (principal); N17.9 Acute kidney failure, unspecified; E78.5 Hyperlipidemia, unspecified; E11.649 Type 2 diabetes mellitus with hypoglycemia without coma; Z79.84 Long term (current) use of oral hypoglycemic drugs; M70.52 Other bursitis of knee, left knee; T46.4X5A Adverse effect of angiotensin-converting-enzyme inhibitors, initial encounter; N18.3 Chronic kidney disease, stage 3 (moderate); E87.5 Hyperkalemia; I25.10 Atherosclerotic heart disease of native coronary artery without angina pectoris; E66.9 Obesity, unspecified; I12.9 Hypertensive chronic kidney disease with stage 1 through stage 4 chronic kidney disease, or unspecified chronic kidney disease; E11.22 Type 2 diabetes mellitus with diabetic chronic kidney disease; Z95.1 Presence of aortocoronary bypass graft; Z79.82 Long term (current) use of aspirin; Z79.899 Other long term (current) drug therapy; Z68.37 Body mass index [BMI] 37.0-37.9, adult; Z87.891 Personal history of nicotine dependence; Y93.89 Activity, other specified; Y92.89 Other specified places as the place of occurrence of the external cause
CPT/HCPCS: 10102; 10879